=== PATIENT | female | born 1995 | race Caucasian/White ===

== ENCOUNTER 2018-06-30 09:47 | Emergency (ER) | payer MEDICAID ==
[~2018-06-30] VITALS: Ht 160 cm; Wt 71.0 kg
[2018-06-30 10:19] VITALS: BP 116/76
== END 2018-06-30 13:42 | disposition left against medical advice (07) ==
LOC: ER 10:43
DX: Z53.21 Procedure and treatment not carried out due to patient leaving prior to being seen by health care provider (principal)